=== PATIENT | male | born 1950 | race Caucasian/White ===

== ENCOUNTER 2020-09-18 09:38 | Emergency (ER) | payer BC, MEDICARE ==
--- NOTE | 2020-09-18 09:54 | EDM.PDOC ---
ED HPI GENERAL MEDICAL PROBLEM - General Chief Complaint: Chest Pain Stated Complaint: HIGH BLOOD PRESSURE Time Seen by Provider: 09/18/20 09:48 - History of Present Illness INITIAL COMMENTS - FREE TEXT/NARRATIVE: History of present illness: [] The patient is blood pressure that is difficult to manage. 2 weeks or more ago his carvedilol and losartan were supplemented with a new blood pressure medicine. It did not help. So they tried nifedipine. I controlled his blood pressure very well but his ankle swelled and were so painful he had to stop it. His doctor this week was out of town and the substitute doctor placed him on verapamil 125 mg a day in addition to his carvedilol 6.25 mg and his losartan. The patient's blood pressure was out of control today with numbers as high as 200 for systolic and he had some right anterior chest pressure with no associated symptoms. The patient has a history of GERD and thinks the chest pressure might be related to that. It does not get worse with exertion, does not radiate, does not cause shortness of breath. He does have a little bit of nausea. Review of systems: As per history of present illness and below otherwise all systems reviewed and negative. Past medical history: As per history of present illness and as reviewed below otherwise noncontributory. Surgical history: As per history of present illness and as reviewed below otherwise noncontributory. Social history: No reported history of drug or alcohol abuse. Family history: As per history of present illness and as reviewed below otherwise noncontributory. Physical exam: Constitutional - well developed, well-nourished and in no acute distress HEENT - normocephalic, no evidence of trauma - external nose and mouth normal - no mass in neck and no JVD - mucosae moist EYES - full EOM, PERRL, no icterus - no evidence of inflammation, injection, or drainage Respiratory - no respiratory distress, equal bilateral expansion, lungs clear to auscultation and no abnormal lung sounds Cardiovascular - Regular Rhythm with S1 and S2 appreciated and no murmur, gallop or rub. GI - abdomen soft without distension or organomegaly - normal bowel sounds - no guard or rebound Musculoskeletal no gross deformity of long bones or joints - no tenderness, swelling or edema Neurologic - Alert and oriented times four - CN II-XII grossly intact - motor sensory and coordination symmetrically normal Psychiatric - appropriate mood and affect with normal thought content Hematologic - No petechiae or purpura - mucosa appropriate color and sclera not pale - normal nail bed color and refill Integument - no rash or evidence of trauma - normal turgor Diagnostics: [] Therapeutics: [] Impression: [] Plan: [] Definitive disposition and diagnosis as appropriate pending reevaluation and review of above. chest Pain Score (Numeric/FACES): 2 - Related Data Allergies Allergy/AdvReac Type Severity Reaction Status Date / Time naproxen [From Naprosyn] Allergy Airway Verified 09/18/20 10:10 Tightness Home Meds: Home Meds Doxazosin [Cardura] 4 mg PO DAILY #90 tab 09/18/20 [Rx] Doxazosin [Doxazosin Mesylate] 2 mg PO BEDTIME 09/18/20 [History] Esomeprazole Magnesium [Nexium] 40 mg PO ACBREAKFAST 09/18/20 [History] Losartan [Cozaar] 100 mg PO DAILY 09/18/20 [History] NIFEdipine [Nifedipine ER] 60 mg PO DAILY 09/18/20 [History] Verapamil HCl [Verapamil ER] 120 mg PO DAILY 09/18/20 [History] carvediloL [Carvedilol] 6.25 mg PO BIDMEALS 09/18/20 [History] Past Medical History - Past Surgical History Other HEENT Surgeries/Procedures: Sinus surgery Other GI Surgeries/Procedures: Dre Fundolication Other Musculoskeletal Surgeries/Procedures:: Arm surgery ED ROS GENERAL - Review of Systems Review Of Systems: Comprehensive ROS is negative, except as noted in HPI. ED EXAM, GENERAL - Physical Exam Exam: See Below Free Text/Narrative:: My physical exam is in the HPI #1 Interpretation EKG Interpretation Comments: EKG sinus rhythm with heart rate of 58. [place] interval is 202. QT duration is 438 with a QRS axis of -40. This EKG demonstrates a left bundle branch block with appropriate repolarization abnormality consistent with that. When compared to the EKG done on 01/15/2015 there was already a left axis deviation to that time with a left bundle branch block has completed since. Impression no obvious acute injury and this will not be called a STEMI in the face of a 6-year interval between the time he had a left axis deviation and developed the bundle branch block. Course - Vital Signs Text/Narrative:: 12:24 PM patient has gotten up and walk without any discomfort but now lying in bed he developed little chest pressure. GI cocktail ordered. Second troponin just drawn. 10:33 PM troponin is negative. Patient had some chest discomfort that went away with a GI cocktail. He has an appointment with his GI doctor next week. Patient's discomfort did return little bit after the GI cocktail wore off. But he was able to walk to the bathroom without any exacerbation, any shortness of breath. I calculate a heart score 3 because even though he has a left bundle branch pattern he has no repolarization abnormality. He gets 2 points for age and 1 for having a history of hypertension and a family history of heart disease. 1511 BP 174/86 (MAP 84% of that on arrival) Last Recorded V/S: Last Vital Signs Temp 36.9 C 09/18/20 14:33 Pulse 87 09/18/20 14:31 Resp 18 09/18/20 14:06 BP 177/86 H 09/18/20 14:31 Pulse Ox 98 09/18/20 14:06 - Orders/Labs/Meds Orders: Active Orders 24 hr Category Date Time Status EKG Documentation Completion [RC] AM Care 09/18/20 10:06 Active Sodium Chloride 0.9% [Saline Flush] Med 09/18/20 10:06 Active 10 ml FLUSH ASDIRECTED PRN Sodium Chloride 0.9% [Saline Flush] Med 09/18/20 10:06 Active 2.5 ml FLUSH ASDIRECTED PRN Saline Lock Insert [OM.PC] Stat Oth 09/18/20 10:06 Ordered Medication Orders Sodium Chloride (Sodium Chloride 0.9% 10 Ml Syringe) 10 ml FLUSH ASDIRECTED PRN PRN Reason: Keep Vein Open Last Admin: 09/18/20 11:30 Dose: 10 ml Documented by: ASHLEE Sodium Chloride (Sodium Chloride 0.9% 2.5 Ml Syringe) 2.5 ml FLUSH ASDIRECTED PRN PRN Reason: Keep Vein Open Last Admin: 09/18/20 11:30 Dose: 2.5 ml Documented by: ASHLEE Labs: Laboratory Tests 09/18/20 09/18/20 09/18/20 Range/Units 09:48 09:48 12:23 WBC 7.31 (4.0-11.0) K/uL RBC 4.69 (4.50-5.90) M/uL Hgb 14.5 (13.0-17.0) g/dL Hct 41.9 (38.0-50.0) % MCV 89.3 (80.0-98.0) fL MCH 30.9 (27.0-32.0) pg MCHC 34.6 (31.0-37.0) g/dL RDW Std Deviation 40.1 (28.0-62.0) fl RDW Coeff of Shaylee 13 (11.0-15.0) % Plt Count 260 (150-400) K/uL MPV 9.80 (7.40-12.00) fL Neut % (Auto) 70.3 (48.0-80.0) % Lymph % (Auto) 17.5 (16.0-40.0) % [place] % (Auto) 8.2 (0.0-15.0) % Eos % (Auto) 3.7 (0.0-7.0) % Baso % (Auto) 0.3 (0.0-1.5) % Neut # (Auto) 5.1 (1.4-5.7) K/uL Lymph # (Auto) 1.3 (0.6-2.4) K/uL [place] # (Auto) 0.6 (0.0-0.8) K/uL Eos # (Auto) 0.3 (0.0-0.7) K/uL Baso # (Auto) 0.0 (0.0-0.1) K/uL Nucleated RBC % 0.0 /100WBC Nucleated RBCs # 0 K/uL Sodium 135 L (136-148) mmol/L Potassium 4.0 (3.5-5.1) mmol/L Chloride 97 L (98-107) mmol/L Carbon Dioxide 27.4 (21.0-32.0) mmol/L BUN 11 (7.0-18.0) mg/dL Creatinine 1.4 H (0.8-1.3) mg/dL Est Cr Clr Drug Dosing 54.69 mL/min Estimated GFR (MDRD) 50.0 ml/min Glucose 117 H (74-106) mg/dL Calcium 8.7 (8.5-10.1) mg/dL Total Bilirubin 0.4 (0.2-1.0) mg/dL AST 23 (15-37) IU/L ALT 38 (14-63) IU/L Alkaline Phosphatase 86 (46-116) U/L Troponin I < 0.050 < 0.050 (0.000-0.056) ng/mL Total Protein 8.7 H (6.4-8.2) g/dL Albumin 4.2 (3.4-5.0) g/dL Globulin 4.5 H (2.6-4.0) g/dL Albumin/Globulin Ratio 0.9 (0.9-1.6) Meds: Medications Generic Name Dose Route Start Last Admin Trade Name Freq PRN Reason Stop Dose Admin Sodium Chloride 10 ml 09/18/20 10:06 09/18/20 11:30 Sodium Chloride 0.9% 10 Ml Syringe FLUSH 10 ml ASDIRECTED PRN Administration Keep Vein Open Sodium Chloride 2.5 ml 09/18/20 10:06 09/18/20 11:30 Sodium Chloride 0.9% 2.5 Ml Syringe FLUSH 2.5 ml ASDIRECTED PRN Administration Keep Vein Open Discontinued Medications Generic Name Dose Route Start Last Admin Trade Name Freq PRN Reason Stop Dose Admin Carvedilol 12.5 mg 09/18/20 14:30 09/18/20 14:31 Carvedilol 12.5 Mg Tab PO 09/18/20 14:31 12.5 mg ONETIME ONE Administration Al Hydroxide/Mg Hydroxide 15 0 ml 09/18/20 12:23 09/18/20 12:36 ml/ Lidocaine HCl 5 ml PO 09/18/20 12:24 1 each ONETIME ONE Administration Hydralazine HCl 5 mg 09/18/20 10:46 09/18/20 11:27 Hydralazine 20 Mg/Ml Sdv IVPUSH 09/18/20 10:47 5 mg ONETIME ONE Administration Hydralazine HCl 5 mg 09/18/20 12:13 09/18/20 12:18 Hydralazine 20 Mg/Ml Sdv IVPUSH 09/18/20 12:14 5 mg ONETIME ONE Administration Hydralazine HCl 10 mg 09/18/20 13:35 09/18/20 14:06 Hydralazine 20 Mg/Ml Sdv IVPUSH 09/18/20 13:36 10 mg ONETIME ONE Administration Departure - Departure Time of Disposition: 15:11 Disposition: Home, Self-Care 01 Condition: Good Clinical Impression: Chest pain, Hypertension - Discharge Information Prescriptions: Doxazosin [Cardura] 4 mg PO DAILY #90 tab Instructions: Nonspecific Chest Pain, Adult, Hypertension, Adult, [id number] Referrals: Roland Kowalski MD [Primary Care Provider] - Forms: ED Department Discharge Additional Instructions: Follow the instructions of Dr. Kowalski and keep in touch. Follow your blood pressure. Your doxazosin at night Sepsis Event Note (ED) - Focused Exam Vital Signs: Vital Signs Temp Pulse Pulse Resp BP BP Pulse Ox 09/18/20 14:33 36.9 C 09/18/20 14:31 87 177/86 H 09/18/20 14:06 70 18 174/90 H 98 09/18/20 13:30 66 17 182/92 H 98 09/18/20 13:00 64 17 177/92 H 98 09/18/20 12:37 36.8 C 09/18/20 12:00 63 17 173/85 H 98 09/18/20 11:45 61 17 173/89 H 97 09/18/20 11:30 57 L 17 191/90 H 98 09/18/20 11:15 55 L 17 180/90 H 97 09/18/20 11:00 53 L 17 182/91 H 97 09/18/20 10:45 61 17 183/94 H 98 09/18/20 10:30 57 L 17 185/96 H 99 09/18/20 10:15 55 L 17 186/94 H 98 09/18/20 10:00 61 17 189/96 H 98 09/18/20 09:48 36.6 C 61 18 218/95 H 99 - My Orders Last 24 Hours: My Active Orders 09/18/20 10:06 EKG Documentation Completion [RC] AM Sodium Chloride 0.9% [Saline Flush] 10 ml FLUSH ASDIRECTED PRN Sodium Chloride 0.9% [Saline Flush] 2.5 ml FLUSH ASDIRECTED PRN Saline Lock Insert [OM.PC] Stat - Assessment/Plan Last 24 Hours: My Active Orders 09/18/20 10:06 EKG Documentation Completion [RC] AM Sodium Chloride 0.9% [Saline Flush] 10 ml FLUSH ASDIRECTED PRN Sodium Chloride 0.9% [Saline Flush] 2.5 ml FLUSH ASDIRECTED PRN Saline Lock Insert [OM.PC] Stat
[2020-09-18] MEDS ORDERED: Sodium Chloride 0.9% 10 ML Syringe FLUSH PRN (10:06)
[2020-09-18] MEDS ORDERED: Sodium Chloride 0.9% 2.5 ML Syringe FLUSH PRN (10:06)
[2020-09-18 10:33] LABS: BLOOD UREA NITROGEN,BUN 11 mg/dL (7.0-18.0); CARBON DIOXIDE,CO2 27.4 mmol/L (21.0-32.0); CHLORIDE,CL 97 mmol/L (98-107); GLUCOSE RANDOM 117 mg/dL (74-106); SODIUM,NA 135 mmol/L (136-148)
[2020-09-18] MEDS ORDERED: hydrALAZINE 20 MG/ML SDV IVPUSH ONE ×3 (10:46→13:35)
[2020-09-18] MEDS ORDERED: Alum Hydrox/Mag Hydrox/Simeth 15 ML, Lidocaine 2% 5 ML PO ONE ×2 (12:23)
--- NOTE | 2020-09-18 13:35 | CR ---
HISTORY: Chest pain. TECHNIQUE: Portable frontal view the chest. COMPARISON: Chest x-ray 07/26/2009. FINDINGS: Mild left basilar atelectasis. No airspace consolidation. No pleural effusion or pneumothorax. Pulmonary vasculature and cardiomediastinal silhouette are normal. IMPRESSION: Mild left basilar atelectasis. Dictated by Yaakov Marquez MD @ 09/18/2020 1:33:[address] Yaakov Marquez @ Sep 18 2020 1:33PM
[2020-09-18] MEDS ORDERED: Carvedilol 12.5 MG Tab PO ONE ×2 (14:16→14:30)
[2020-09-18] MEDS ORDERED: Acetaminophen 500 MG Tab ONE (15:35)
[2020-09-18] MEDS ORDERED: Acetaminophen 500 MG Tab PO ONE (15:36)
[2020-09-18 16:33] VITALS: BP 165/88; PULSE 77
== END 2020-09-18 15:39 | disposition home or self-care (01) ==
LOC: MW.ED 09:38
DX: R07.89 Other chest pain (principal); I10 Essential (primary) hypertension; Z88.5 Allergy status to narcotic agent; Z79.899 Other long term (current) drug therapy
CPT/HCPCS: 36415; 71045; 80053; 84484; 85025; 93005; 96374; 96376; 99285; A9270; J0360; 93010; 99284

== ENCOUNTER 2024-02-24 13:16 | Emergency (ER) | payer BC, MEDICARE ==
[2024-02-24 14:08] LABS: CORONAVIRUS COVID-19 NAA NEGATIVE (NEGATIVE); INFLUENZA A NAA NEGATIVE (NEGATIVE); INFLUENZA B NAA NEGATIVE (NEGATIVE); RESPIRATORY SYNCYTIAL VIR NAA NEGATIVE (NEGATIVE)
[2024-02-24] MEDS: Azithromycin 250 MG Tab PO ONE (14:29)
[2024-02-24 14:32] VITALS: BP 141/86; PULSE 81
== END 2024-02-24 14:31 | disposition home or self-care (01) ==
LOC: MW.ED 13:16
DX: J40 Bronchitis, not specified as acute or chronic (principal); I10 Essential (primary) hypertension; Z79.899 Other long term (current) drug therapy; Z88.6 Allergy status to analgesic agent
CPT/HCPCS: 0241U; 71046; 99283; A9270